=== PATIENT | male | born 1975 | race Caucasian/White ===

== ENCOUNTER 2025-07-13 10:54 | Emergency (ER) | payer MEDICAID ==
[~2025-07-13] VITALS: Ht 180.3 cm; Wt 92.6 kg
[2025-07-13 12:48] VITALS: BP 136/85; TEMP 97.7; O2SAT 100
[2025-07-13] MEDS: KETOROLAC 30 MG/ML 1 ML VIAL IM ONE (13:50)
== END 2025-07-13 14:04 | disposition home or self-care (01) ==
LOC: M ED 13:03
DX: S83.92XA Sprain of unspecified site of left knee, initial encounter (principal); Y92.9 Unspecified place or not applicable; Y93.9 Activity, unspecified; Y99.9 Unspecified external cause status
CPT/HCPCS: 73564; 96372; 99284; J1885